=== PATIENT | male | born 1960 | race African-American/Black ===

== ENCOUNTER 2018-04-24 12:30 | Emergency (ER) | payer OTHER, MEDICARE, MEDICAID ==
--- NOTE | 2018-04-24 12:41 | ER Document Report ---
ED Medical Screen (RME) - General Chief Complaint: Back Pain Stated Complaint: BACK PAIN Time Seen by Provider: 04/24/18 12:37 Mode of Arrival: Medic Notes: patient presented to the ED via EMS for c/o left hip pain after helping a friend move furniture. Did not fall, denies trauma, did not take any pain medication. Pt is very angry, cussing wanting pain medication. Was able to stand with assistance. TRAVEL OUTSIDE OF THE [place] IN LAST 30 DAYS: No - Related Data Allergies/Adverse Reactions: No Known Allergies Allergy (Verified 03/29/13 18:32) Past Medical History - Past Medical History Cardiac Medical History: Denies: Hx Heart Attack, Hx Hypertension Pulmonary Medical History: Reports: Hx Bronchitis, Hx Sleep Apnea - has to retake sleep study. Denies: Hx Asthma Neurological Medical History: Denies: Hx Cerebrovascular Accident, Hx Seizures Endocrine Medical History: Reports: Hx Diabetes Mellitus Type 1 Renal/ Medical History: Denies: Hx Benign Prostatic Hyperplasia, Hx End Stage Renal Disease, Hx Kidney Stones, Hx Peritoneal Dialysis GI Medical History: Denies: Hx Crohn's Disease, Hx Gastroesophageal Reflux Disease, Hx Hepatitis, Hx Hiatal Hernia, Hx Irritable Bowel, Hx Liver Failure, Hx Pancreatitis, Hx Ulcer Musculoskeltal Medical History: Reports Hx Arthritis, Denies Hx Multiple Sclerosis Psychiatric Medical History: Denies: Hx Dementia Infectious Medical History: Denies: Hx Hepatitis Past Surgical History: Reports: Hx Cholecystectomy. Denies: Hx Colostomy, Hx Open Heart Surgery, Hx Pacemaker - Immunizations Hx Diphtheria, Pertussis, Tetanus Vaccination: No - unknown Physical Exam - Vital signs Vitals: Temp Pulse Resp BP Pulse Ox 98.5 F 83 22 H 160/104 H 100 04/24/18 12:34 04/24/18 12:34 04/24/18 12:34 04/24/18 12:34 04/24/18 12:34 Course - Vital Signs Vital signs: Temp Pulse Resp BP Pulse Ox 98.5 F 83 22 H 160/104 H 100 04/24/18 12:34 04/24/18 12:34 04/24/18 12:34 04/24/18 12:34 04/24/18 12:34 Doctor's Discharge - Discharge Referrals: JOHN GASPAR MD [Primary Care Provider] - Follow up as needed
--- NOTE | 2018-04-24 13:16 | RADIOLOGY REPORT (SQ) ---
EXAM DESCRIPTION: HIP LEFT AP/LATERAL COMPLETED DATE/TIME: 04/24/2018 1:05 pm REASON FOR STUDY: HIP PAIN COMPARISON: None. NUMBER OF VIEWS: Two views. TECHNIQUE: AP pelvis and additional frog-leg view of the left hip. LIMITATIONS: None. FINDINGS: MINERALIZATION: Normal. LEFT HIP: No fracture or dislocation. No worrisome bone lesions. RIGHT HIP: No fracture or dislocation. No worrisome bone lesions. PUBIS AND ISCHIUM: No fracture. PELVIS: No fracture. SACRUM: No fracture or dislocation. No worrisome bone lesions. LOWER LUMBAR SPINE: No fracture or dislocation. No worrisome bone lesions. No significant disc disea se. SOFT TISSUES: No findings. OTHER: No other significant finding. IMPRESSION: NEGATIVE STUDY OF THE LEFT HIP AND PELVIS. NO RADIOGRAPHIC EVIDENCE OF ACUTE INJURY. TECHNICAL DOCUMENTATION: JOB ID: [id number] [employer]- All Rights Reserved Reading location - IP/workstation name: [email or web address]
[2018-04-24] MEDS ORDERED: KETOROLAC TROMETHAMINE 60 MG/2 ML SDV IM ONE (13:52)
[2018-04-24] MEDS ORDERED: MORPHINE SULFATE 10 MG/ML INJ IM ONE (13:52)
--- NOTE | 2018-04-24 14:32 | ER Document Report ---
ED General - General Chief Complaint: Back Pain Stated Complaint: BACK PAIN Time Seen by Provider: 04/24/18 12:37 Mode of Arrival: Medic Notes: Patient is a 57 year old male that presents to the emergency department for chief complaint of left hip pain with radiation down the left leg. Patient states that he was about to lift a couch when he twisted and felt a sharp pain in his left buttock, that radiated down the back of his left leg. At that time he stated the pain was a 9/10 and severe and aching in nature and constant. He states that the pain has since improved but is still present. He denies having saddle anesthesia, or paresthesias, and denies any urinary retention, or stool incontinence. Denies falling or having any other injuries. No other complaints at this time. Past Medical History: DM, htn, RA Past Surgical History: cholecystectomy, right lung biopsy, eye surgeries Social History: Denies tobacco, alcohol, or drug use. Family History: Reviewed and noncontributory for presenting illness Allergies: Reviewed, see documented allergy list. REVIEW OF SYSTEMS: Other than noted above, the 12 point review of systems was reviewed with the patient and were negative, all pertinent findings are included in the HPI. PHYSICAL EXAMINATION: Vital signs reviewed, nursing noted reviewed. GENERAL: Obese male and in no acute distress. HEAD: Atraumatic, normocephalic. EYES: Eyes appear normal, extraocular movements intact, sclera anicteric, conjunctiva are normal. ENT: nares patent, oropharynx clear without exudates. Moist mucous membranes. NECK: Normal range of motion, supple without lymphadenopathy LUNGS: Breath sounds clear to auscultation bilaterally and equal. No wheezes rales or rhonchi. HEART: Regular rate and rhythm without murmurs ABDOMEN: Soft, obese, nontender, normoactive bowel sounds. No rebound, guarding, or rigidity. No masses appreciated. BACK: No midline tenderness with palpation, no paraspinal tenderness, there is tenderness with palpation in the region of the piriformis muscle on the left. EXTREMITIES: Nontender, good range of motion, no pitting or edema. NEUROLOGICAL: No focal neurological deficits. Moves all extremities spontaneously Motor and sensory grossly intact on exam. Reflexes are 2/4 bilaterally in the achilles and patellar tendon reflexes. +5/5 strength with dorsiflexsion, plantarflexion and extension of the hallucis longus tendon bilaterally. Antalgic gait. PSYCH: Normal mood, normal affect. SKIN: Warm, Dry, normal turgor, no rashes or lesions noted on exposed skin TRAVEL OUTSIDE OF THE [place] IN LAST 30 DAYS: No - Related Data Allergies/Adverse Reactions: No Known Allergies Allergy (Verified 03/29/13 18:32) Past Medical History - Social History Smoking Status: Former Smoker Frequency of alcohol use: None Drug Abuse: None Family History: Reviewed & Not Pertinent Patient has suicidal ideation: No Patient has homicidal ideation: No - Past Medical History Cardiac Medical History: Denies: Hx Heart Attack, Hx Hypertension Pulmonary Medical History: Reports: Hx Bronchitis, Hx Sleep Apnea - has to retake sleep study. Denies: Hx Asthma Neurological Medical History: Denies: Hx Cerebrovascular Accident, Hx Seizures Endocrine Medical History: Reports: Hx Diabetes Mellitus Type 1 Renal/ Medical History: Denies: Hx Benign Prostatic Hyperplasia, Hx End Stage Renal Disease, Hx Kidney Stones, Hx Peritoneal Dialysis GI Medical History: Denies: Hx Crohn's Disease, Hx Gastroesophageal Reflux Disease, Hx Hepatitis, Hx Hiatal Hernia, Hx Irritable Bowel, Hx Liver Failure, Hx Pancreatitis, Hx Ulcer Musculoskeletal Medical History: Reports Hx Arthritis, Denies Hx Multiple Sclerosis Psychiatric Medical History: Denies: Hx Dementia Infectious Medical History: Denies: Hx Hepatitis Past Surgical History: Reports: Hx Cholecystectomy. Denies: Hx Colostomy, Hx Open Heart Surgery, Hx Pacemaker - Immunizations Hx Diphtheria, Pertussis, Tetanus Vaccination: No - unknown Hx Pneumococcal Vaccination: 05/06/09 Physical Exam - Vital signs Vitals: Temp Pulse Resp BP Pulse Ox 98.5 F 83 22 H 160/104 H 100 04/24/18 12:34 04/24/18 12:34 04/24/18 12:34 04/24/18 12:34 04/24/18 12:34 Course - Re-evaluation Re-evalutation: Patient seen and examined vital signs reviewed. Imaging was ordered as appropriate for the patient's presenting symptoms and complaint, with consideration of any critical or life threatening conditions that may be associated with their obtained history and exam as noted above. Patient was treated with IM morphine and toradol Results were reviewed when available and demonstrated negative imaging of the left hip. The patient was re-evaluated and was improved, his symptoms were most consistent with left sided sciatica, as he has pain radiating from the left buttock down the back of the leg, but not distal to the knee, he did not demonstrate any concerning signs for cauda equina or conus medullaris syndromes. I will discharge the patient on norco 5mg/325mg for pain, as well as robaxin 750mg as needed for a muscle relaxer. Will hold off on steroids at this time given history of insulin dependent diabetes, I discussed with him that he may need physical therapy and to follow-up with his PCP. Results were discussed with the patient at this point, after careful consideration I feel that that patient can be discharged from the emergency department, the patient was educated treatments and reasons to return to the emergency department based on their presumed diagnosis as noted above, they were advised to followup with a primary care physician in 2-3 days. Patient was agreeable to plan of care. *Note is created using voice recognition software and may contain spelling, syntax or grammatical errors. Hip X-Ray 04/24/18 12:37 IMPRESSION: NEGATIVE STUDY OF THE LEFT HIP AND PELVIS. NO RADIOGRAPHIC EVIDENCE OF ACUTE INJURY. - Vital Signs Vital signs: Temp Pulse Resp BP Pulse Ox 98.1 F 84 20 158/86 H 100 04/24/18 14:50 04/24/18 14:50 04/24/18 14:50 04/24/18 14:50 04/24/18 14:50 Discharge - Discharge Clinical Impression: Sciatica Qualifiers: Laterality: left Qualified Code(s): M54.32 - Sciatica, left side Condition: Stable Disposition: HOME, SELF-CARE Instructions: Sciatica ([facility]) Prescriptions: Hydrocodone/Acetaminophen [[place] 5-325 Tablet] 1 each PO Q8H PRN #15 tablet PRN Reason: back pain Methocarbamol [Robaxin 750 mg Tablet] 750 mg PO ASDIR PRN #20 tablet PRN Reason: back pain Referrals: JOHN GASPAR MD [Primary Care Provider] - Follow up in 3-5 days
[2018-04-24 14:51] VITALS: BP 158/86
== END 2018-04-24 15:01 | disposition home or self-care (01) ==
LOC: ER 12:30
DX: M54.32 Sciatica, left side (principal); M25.552 Pain in left hip; E10.9 Type 1 diabetes mellitus without complications; Z90.49 Acquired absence of other specified parts of digestive tract
CPT/HCPCS: 99284; 96372; 73502; J1885; J2270

== ENCOUNTER 2018-11-30 12:25 | Emergency (ER) | payer MEDICARE, MEDICAID ==
[2018-11-30 12:33] VITALS: BP 139/73
[2018-11-30] MEDS ORDERED: NORMAL SALINE 1000 ML 1,000 ML IV ONE (13:44)
--- NOTE | 2018-11-30 13:48 | ER Document Report ---
ED Medical Screen (RME) - General Chief Complaint: High Blood Sugar Stated Complaint: BLOOD SUGAR ISSUES Time Seen by Provider: 11/30/18 13:38 Primary Care Provider: JOHN GASPAR MD [Primary Care Provider] - Follow up as needed Notes: Patient is a 58-year-old male with a past medical history of hypertension and diabetes who presents to the emergency department with a chief complaint of a high blood sugar reading at home. According to his monitor at home it was high, in the 600s. He subsequently gave himself 50 units of Levemir and 8 units of NovoLog. He then rechecked his blood sugar and it was still high. This is around 9:00 this morning. The patient then came to the emergency department. In triage, the patient's blood pressure is now 480. He does complain of some dysuria and itchiness. He was started on Jardiance 1 month ago. Exam: Soft nontender abdomen. I have greeted and performed a rapid initial assessment of this patient. A comprehensive ED assessment and evaluation of the patient, analysis of test results and completion of medical decision making process will be conducted by an additional ED providers. TRAVEL OUTSIDE OF THE [place] IN LAST 30 DAYS: No - Related Data Allergies/Adverse Reactions: No Known Allergies Allergy (Verified 11/30/18 12:25) Past Medical History - Social History Chew tobacco use (# tins/day): No - Past Medical History Cardiac Medical History: Denies: Hx Heart Attack, Hx Hypertension Pulmonary Medical History: Reports: Hx Bronchitis, Hx Sleep Apnea - has to retake sleep study. Denies: Hx Asthma Neurological Medical History: Denies: Hx Cerebrovascular Accident, Hx Seizures Endocrine Medical History: Reports: Hx Diabetes Mellitus Type 1 Renal/ Medical History: Denies: Hx Benign Prostatic Hyperplasia, Hx End Stage Renal Disease, Hx Kidney Stones, Hx Peritoneal Dialysis GI Medical History: Denies: Hx Crohn's Disease, Hx Gastroesophageal Reflux Disease, Hx Hepatitis, Hx Hiatal Hernia, Hx Irritable Bowel, Hx Liver Failure, Hx Pancreatitis, Hx Ulcer Musculoskeltal Medical History: Reports Hx Arthritis, Denies Hx Multiple Sclerosis Psychiatric Medical History: Denies: Hx Dementia Infectious Medical History: Denies: Hx Hepatitis Past Surgical History: Reports: Hx Cholecystectomy. Denies: Hx Colostomy, Hx Open Heart Surgery, Hx Pacemaker - Immunizations Hx Diphtheria, Pertussis, Tetanus Vaccination: No - unknown Physical Exam - Vital signs Vitals: Temp Pulse Resp BP Pulse Ox 98.1 F 78 18 139/73 H 94 11/30/18 12:11/30/18 12:11/30/18 12:11/30/18 12:11/30/18 12:31 Course - Vital Signs Vital signs: Temp Pulse Resp BP Pulse Ox 98.1 F 78 18 139/73 H 94 11/30/18 12:31 11/30/18 12:31 11/30/18 12:31 11/30/18 12:31 11/30/18 12:31 Doctor's Discharge - Discharge Referrals: JOHN GASPAR MD [Primary Care Provider] - Follow up as needed
[2018-11-30 14:20] LABS: ABSOLUTE BASOPHILS # (AUTO) 0.1 10^3/uL (0.0-0.2); ABSOLUTE EOSINOPHILS # (AUTO) 0.3 10^3/uL (0.0-0.6); ABSOLUTE MONOCYTES (AUTO) 0.9 10^3/uL (0.1-1.4); ABSOLUTE NEUT (AUTO) 4.8 10^3/uL (1.7-8.2); APPEARANCE,URINE CLEAR; BASOPHILS % (AUTO) 1.1 % (0-2); BILIRUBIN,URINE NEGATIVE (NEGATIVE); COLOR,URINE STRAW; EOSINOPHILS % (AUTO) 3.8 % (0-6); GLUCOSE, URINE >=500 mg/dL (NEGATIVE); HEMATOCRIT 39.9 % (37.9-51.0); HEMOGLOBIN 13.4 g/dL (13.5-17.0); KETONES,URINE NEGATIVE (NEGATIVE); LEUKOCYTE ESTERASE,URINE NEGATIVE (NEGATIVE); LYMPHOCYTES % (AUTO) 32.8 % (13-45); MEAN CORPUSCULAR HEMOGLOBIN 29.5 pg (27.0-33.4); MEAN CORPUSCULAR HGB CONC 33.5 g/dL (32.0-36.0); MEAN CORPUSCULAR VOLUME 88 fl (80-97); MONOCYTES % (AUTO) 9.8 % (3-13); NITRITE,URINE NEGATIVE (NEGATIVE); PLATELET COUNT 176 10^3/uL (150-450); PROTEIN,URINE NEGATIVE (NEGATIVE); RED BLOOD COUNT 4.54 10^6/uL (4.35-5.55); RED CELL DISTRIBUTION WIDTH 14.4 % (11.5-14.0); SEGMENTED NEUTROPHILS % (AUTO) 52.5 % (42-78); TOTAL CELLS COUNTED % (AUTO) 100 %; URINE SPECIFIC GRAVITY 1.022; UROBILINOGEN,URINE NEGATIVE mg/dL (<2.0); WHITE BLOOD COUNT 9.2 10^3/uL (4.0-10.5)
[2018-11-30 14:42] LABS: ALANINE AMINOTRANSFERASE 33 U/L (21-72); ALBUMIN 4.3 g/dL (3.5-5.0); ALKALINE PHOSPHATASE 96 U/L (38-126); ANION GAP 11 (5-19); ASPARTATE AMINO TRANSFERASE 26 U/L (17-59); BILIRUBIN,DIRECT 0.2 mg/dL (0.0-0.4); BILIRUBIN,TOTAL 0.6 mg/dL (0.2-1.3); BLOOD UREA NITROGEN 22 mg/dL (7-20); CALCIUM 9.3 mg/dL (8.4-10.2); CARBON DIOXIDE 26 mmol/L (22-30); CHLORIDE 99 mmol/L (98-107); POTASSIUM 4.2 mmol/L (3.6-5.0); TOTAL PROTEIN 7.9 g/dL (6.3-8.2)
[2018-11-30 14:53] LABS: GLUCOSE 462 mg/dL (75-110)
[2018-11-30] MEDS ORDERED: INSULIN REG, HUMAN 100 UNIT/ML 3 ML VIAL (PYX) SUBCUT ONE (14:54)
--- NOTE | 2018-11-30 17:00 | ER Document Report ---
ED General - General Chief Complaint: High Blood Sugar Stated Complaint: BLOOD SUGAR ISSUES Time Seen by Provider: 11/30/18 13:38 Primary Care Provider: JOHN GASPAR MD [Primary Care Provider] - Follow up as needed Notes: Patient is a 58-year-old male with diabetes mellitus, insulin-dependent that presents to the emergency department for chief complaint of high blood sugar, polyuria and polydipsia. Patient states the past 2 days is been having polyuria polydipsia, is been drinking a lot of juices, thinking he might of been dehydrated, has been using his Levemir 50 units twice daily, and NovoLog 8 units with meals, and when he went to check his sugar today, it read as "high" so he decided come to the emergency department. He denies having any chest pain, shortness of breath, nausea, vomiting, syncope, abdominal pain, dysuria or hematuria. He does states his been drinking and urinating a lot more fr equently. No other complaints at this time. Past Medical History: Diabetes, hypertension, sciatica, sleep apnea Past Surgical History: Denies recent or pertinent surgical history Social History: Admits to occasional cigarette use, denies alcohol or drug use. Family History: Reviewed and noncontributory for presenting illness Allergies: Reviewed, see documented allergy list. REVIEW OF SYSTEMS: Other than noted above, the 12 point review of systems was reviewed with the patient and were negative, all pertinent findings are included in the HPI. PHYSICAL EXAMINATION: Vital signs reviewed, nursing noted reviewed. GENERAL: Well-appearing, well-nourished and in no acute distress. HEAD: Atraumatic, normocephalic. EYES: Eyes appear normal, extraocular movements intact, sclera anicteric, c onjunctiva are normal. ENT: nares patent, oropharynx clear without exudates. Moist mucous membranes. NECK: Normal range of motion, supple without lymphadenopathy LUNGS: Breath sounds clear to auscultation bilaterally and equal. No wheezes rales or rhonchi. HEART: Regular rate and rhythm without murmurs ABDOMEN: Soft, nontender, normoactive bowel sounds. No rebound, guarding, or rigidity. No masses appreciated. EXTREMITIES: Nontender, good range of motion, no pitting or edema. NEUROLOGICAL: No focal neurological deficits. Moves all extremities spontaneously Motor and sensory grossly intact on exam. PSYCH: Normal mood, normal affect. SKIN: Warm, Dry, normal turgor, no rashes or lesions noted on exposed skin TRAVEL OUTSIDE OF THE [place] IN LAST 30 DAYS: No - Related Data Allergies/Adverse Reactions: No Known Allergies Allergy (Verified 11/30/18 12:25) Past Medical History - Social History Smoking Status: Never Smoker Chew tobacco use (# tins/day): No Family History: Reviewed & Not Pertinent Patient has suicidal ideation: No Patient has homicidal ideation: No - Past Medical History Cardiac Medical History: Denies: Hx Heart Attack, Hx Hypertension Pulmonary Medical History: Reports: Hx Bronchitis, Hx Sleep Apnea - has to retake sleep study. Denies: Hx Asthma Neurological Medical History: Denies: Hx Cerebrovascular Accident, Hx Seizures Endocrine Medical History: Reports: Hx Diabetes Mellitus Type 1 Renal/ Medical History: Denies: Hx Benign Prostatic Hyperplasia, Hx End Stage Renal Disease, Hx Kidney Stones, Hx Peritoneal Dialysis GI Medical History: Denies: Hx Crohn's Disease, Hx Gastroesophageal Reflux Disease, Hx Hepatitis, Hx Hiatal Hernia, Hx Irritable Bowel, Hx Liver Failure, Hx Pancreatitis, Hx Ulcer Musculoskeletal Medical History: Reports Hx Arthritis, Denies Hx Multiple Sclerosis Psychiatric Medical History: Denies: Hx Dementia Infectious Medical History: Denies: Hx Hepatitis Past Surgical History: Reports: Hx Cholecystectomy. Denies: Hx Colostomy, Hx Open Heart Surgery, Hx Pacemaker - Immunizations Hx Diphtheria, Pertussis, Tetanus Vaccination: No - unknown Hx Pneumococcal Vaccination: 05/06/09 Physical Exam - Vital signs Vitals: Temp Pulse Resp BP Pulse Ox 98.1 F 78 18 139/73 H 94 11/30/18 12:31 11/30/18 12:31 11/30/18 12:31 11/30/18 12:31 11/30/18 12:31 Course - Re-evaluation Re-evalutation: Patient seen and examined vital signs reviewed. Laboratory data and/or imaging were ordered as appropriate for the patient's presenting symptoms and complaint, with consideration of any critical or life threatening conditions that may be associated with their obtained history and exam as noted above. Patient was treated with IV fluids Results were reviewed when available and demonstrated hyperglycemia, with a blood sugar in the 400s, which did improve down to the 200s after fluids The patient was re-evaluated and was stable, felt well Evaluation was most consistent with hyperglycemia, nondiabetic patient, I recommend he continue his current insulin regimen and other antidiabetic medications, and to follow-up with his primary care, and to monitor his diet and decrease sugary drinks, and carbohydrates. Results were discussed with the patient at this point, after careful consideration I feel that that patient can be discharged from the emergency department, the patient was educated treatments and reasons to return to the emergency department based on their presumed diagnosis as noted above, they were advised to followup with a primary care physician in 2-3 days. Patient was agreeable to plan of care. *Note is created using voice recognition software and may contain spelling, syntax or grammatical errors. Laboratory 11/30/18 11/30/18 11/30/18 13:41 14:00 14:00 WBC 9.2 RBC 4.54 Hgb 13.4 L Hct 39.9 MCV 88 MCH 29.5 MCHC 33.5 RDW 14.4 H Plt Count 176 Seg Neutrophils % 52.5 Lymphocytes % 32.8 Monocytes % 9.8 Eosinophils % 3.8 Basophils % 1.1 Absolute Neutrophils 4.8 Absolute Lymphocytes 3.0 Absolute Monocytes 0.9 Absolute Eosinophils 0.3 Absolute Basophils 0.1 Sodium 135.7 L Potassium 4.2 Chloride 99 Carbon Dioxide 26 Anion Gap 11 BUN 22 H Creatinine 1.52 H Est GFR ( Amer) 57 L Est GFR (Non-Af Amer) 47 L Glucose 462 H* POC Glucose 480 H* Calcium 9.3 Total Bilirubin 0.6 Direct Bilirubin 0.2 Neonat Total Bilirubin Not Reportable Neonat Direct Bilirubin Not Reportable Neonat Indirect Bili Not Reportable AST 26 ALT 33 Alkaline Phosphatase 96 Total Protein 7.9 Albumin 4.3 Urine Color Urine Appearance Urine pH Ur Specific [place] Urine Protein Urine Glucose (UA) Urine Ketones Urine Blood Urine Nitrite Urine Bilirubin Urine Urobilinogen Ur Leukocyte Esterase Urine WBC (Auto) Squamous Epi Cells Auto Urine Mucus (Auto) Urine Ascorbic Acid 11/30/18 11/30/18 14:00 16:15 WBC RBC Hgb Hct MCV MCH MCHC RDW Plt Count Seg Neutrophils % Lymphocytes % Monocytes % Eosinophils % Basophils % Absolute Neutrophils Absolute Lymphocytes Absolute Monocytes Absolute Eosinophils Absolute Basophils Sodium Potassium Chloride Carbon Dioxide Anion Gap BUN Creatinine Est GFR ( Amer) Est GFR (Non-Af Amer) Glucose POC Glucose 293 H Calcium Total Bilirubin Direct Bilirubin Neonat Total Bilirubin Neonat Direct Bilirubin Neonat Indirect Bili AST ALT Alkaline Phosphatase Total Protein Albumin Urine Color STRAW Urine Appearance CLEAR Urine pH 5.0 Ur Specific [place] 1.022 Urine Protein NEGATIVE Urine Glucose (UA) >=500 H Urine Ketones NEGATIVE Urine Blood NEGATIVE Urine Nitrite NEGATIVE Urine Bilirubin NEGATIVE Urine Urobilinogen NEGATIVE Ur Leukocyte Esterase NEGATIVE Urine WBC (Auto) 0 Squamous Epi Cells Auto <1 Urine Mucus (Auto) RARE Urine Ascorbic Acid NEGATIVE - Vital Signs Vital signs: Temp Pulse Resp BP Pulse Ox 98.1 F 78 18 139/73 H 94 11/30/18 12:31 11/30/18 12:31 11/30/18 12:31 11/30/18 12:31 11/30/18 12:31 - Laboratory Result Diagrams: 11/30/18 14:00 11/30/18 14:00 Laboratory results interpreted by me: 11/30/18 11/30/18 11/30/18 13:41 14:00 14:00 Hgb 13.4 L RDW 14.4 H Sodium 135.7 L BUN 22 H Creatinine 1.52 H Est GFR ( Amer) 57 L Est GFR (Non-Af Amer) 47 L Glucose 462 H* POC Glucose 480 H* Urine Glucose (UA) 11/30/18 11/30/18 14:00 16:15 Hgb RDW Sodium BUN Creatinine Est GFR ( Amer) Est GFR (Non-Af Amer) Glucose POC Glucose 293 H Urine Glucose (UA) >=500 H Discharge - Discharge Clinical Impression: Hyperglycemia Condition: Stable Disposition: HOME, SELF-CARE Instructions: Hyperglycemia ([facility]) Additional Instructions: Please continue to monitor your sugar at home, avoid sugary drinks and other foods with high carbohydrates, and follow-up with Dr. Nixon and Kelle later this week. Referrals: JOHN GASPAR MD [Primary Care Provider] - Follow up in 3-5 days
== END 2018-11-30 17:43 | disposition home or self-care (01) ==
LOC: ER 12:25
DX: E10.65 Type 1 diabetes mellitus with hyperglycemia (principal); R35.8 Other polyuria; R63.1 Polydipsia; Z79.4 Long term (current) use of insulin; I10 Essential (primary) hypertension; F17.210 Nicotine dependence, cigarettes, uncomplicated
CPT/HCPCS: 99284; 96360; 36415; 82962; 85025; 80053; 81001; J7030

== ENCOUNTER → 2019-08-13 | Outpatient (CLI) | payer MEDICARE, MEDICAID ==
--- NOTE | 2019-08-13 09:15 | RADIOLOGY REPORT (SQ) ---
EXAM DESCRIPTION: L SPINE FLEX/EXT ONLY IMAGES COMPLETED DATE/TIME: 08/13/2019 8:42 am REASON FOR STUDY: RADICULOPATHY, LUMBAR REGION M54.16 RADICULOPATHY, LUMBAR REGION COMPARISON: 09/17/2011. NUMBER OF VIEWS: Two view. TECHNIQUE: Lateral views of the lumbar spine with flexion and extension. LIMITATIONS: None. FINDINGS: MINERALIZATION: Normal. SEGMENTATION: Normal. No transitional anatomy. ALIGNMENT: Minimal grade 1 anterolisthesis of L4 on L5. FLEXION/EXTENSION: No instability. VERTEBRAE: Maintained height. No fracture or worrisome bone lesion. DISCS: Disc space narrowing with small osteophytes. POSTERIOR ELEMENTS: Pedicles and facets are intact. No pars defect or posterior arch defects. HARDWARE: None in the spine. OTHER: No other significant finding. IMPRESSION: MULTILEVEL DEGENERATIVE DISC DISEASE. MINIMAL GRADE 1 ANTEROLISTHESIS OF L 4 ON L5. NO INSTABILITY ON FLEXION/EXTENSION. TECHNICAL DOCUMENTATION: JOB ID: [id number] 2010 [employer]- All Rights Reserved Reading location - IP/workstation name: [email or web address]
== END ==
LOC: OD 08:22
PROVIDERS: ATTEND Specialist
DX: M54.16 Radiculopathy, lumbar region (principal)
CPT/HCPCS: 72120

== ENCOUNTER → 2019-10-08 | Outpatient (CLI) | payer OTHER ==
--- NOTE | 2019-10-08 13:08 | RADIOLOGY REPORT (SQ) ---
EXAM DESCRIPTION: MRI LUMBAR SPINE WITHOUT IMAGES COMPLETED DATE/TIME: 10/08/2019 11:26 am REASON FOR STUDY: LUMBAR RADICULOPATHY M54.16 RADICULOPATHY, LUMBAR REGION COMPARISON: 2008 TECHNIQUE: Sagittal and Axial imaging includes T1, T2, STIR and gradient echo sequences. Coronal T2/ HASTE imaging. LIMITATIONS: None. FINDINGS: VISUALIZED UPPER ABDOMEN: Limited evaluation. No acute or suspicious findings suggested. SEGMENTATION: No transitional anatomy. The lowest well-developed disc space is labeled L5-S1. ALIGNMENT: Grade 1 anterolisthesis L4 relative to L5. VERTEBRAE: Intact. BONE MARROW: Normal. No marrow replacement or reactive changes. DISC SIGNAL: Desiccation L4-5 and L5-S1. POSTERIOR ELEMENTS: Generally intact. No pars defect evident. HARDWARE: None in the spine. CORD AND CONUS: Normal in size and signal intensity. Conus at the appropriate level. SOFT TISSUES: No aortic aneurysm seen. No bulky retroperitoneal adenopathy or mass. No paraspinal mas s or fluid. L1-L2: No significant spinal stenosis or exit foraminal stenosis. L2-L3: No significant spinal stenosis or exit foraminal stenosis. L3-L4: Small left lateral disc contacts the transiting left L4 nerve root in the canal. L4-L5: Moderate -severe spinal stenosis due to broad-based disc herniation, malalignment and facet ar thropathy. L5-S1: Mild spinal stenosis due to chronic central disc herniation and facet arthropathy. LOWER THORACIC: Incompletely imaged. No stenosis seen. SACRUM: Visualized upper sacrum intact. OTHER: No other significant findings. IMPRESSION: Moderate -severe spinal stenosis L4- 5. Small left lateral disc herniation at L3-4. TECHNICAL DOCUMENTATION: JOB ID: [id number] [employer]- All Rights Reserved Reading location - IP/workstation name: [email or web address]
== END ==
LOC: RAD 10:41
PROVIDERS: ATTEND Specialist
DX: M54.16 Radiculopathy, lumbar region (principal)
CPT/HCPCS: 72148